=== PATIENT | female | born 1990 | race Caucasian/White ===

== ENCOUNTER 2018-03-07 14:22 | Emergency (ER) | payer OTHER ==
[2018-03-07 14:43] VITALS: BMI 34.0
[2018-03-07 15:43] LABS: HEMOGLOBIN 12.7 g/dL (12.0-16.0); MEAN CELL VOLUME 91.7 fl (81.0-99.0); MEAN CORPUSCULAR HGB CONC 32.8 g/dL (33.0-37.0); RBC 4.23 Mil/uL (3.80-5.20); RED CELL DISTRIBUTION WIDTH 13.1 % (11.5-14.5); WHITE BLOOD COUNT 11.1 K/uL (4.8-10.8)
[2018-03-07 15:47] LABS: ALB/GLOB RATIO 0.9 (1.0-2.1); ALBUMIN 3.9 g/dL (3.5-5.0); ALT/SGPT 21 U/L (9-52); AST/SGOT 27 U/L (14-36); BLOOD UREA NITROGEN 9 mg/dl (7-17); CALCIUM 9.8 mg/dL (8.4-10.2); GFR NON-AFRICAN AMERICAN > 60
[2018-03-07 16:41] LABS: SQUAMOUS EPITHIAL 6 /hpf (0-5); URINE BACTERIA RARE (<OCC); URINE BILIRUBIN NEGATIVE (NEGATIVE); URINE BLOOD SMALL (NEGATIVE); URINE CLARITY CLOUDY (Clear); URINE COLOR YELLOW (YELLOW); URINE GLUCOSE (UA) NEG (NEGATIVE); URINE LEUKOCYTE ESTERASE NEG Leu/uL (Negative); URINE PROTEIN NEGATIVE (NEGATIVE); URINE UROBILINOGEN 0.2-1.0 mg/dL (0.2-1.0)
[2018-03-07 22:20] VITALS: BP 133/88; PULSE 103; O2SAT 100
== END 2018-03-07 17:35 | disposition home or self-care (01) ==
LOC: H.EROB2 14:22
DX: O16.3 Unspecified maternal hypertension, third trimester (principal); Z3A.32 32 weeks gestation of pregnancy

== ENCOUNTER 2018-03-15 14:57 | Emergency (ER) | payer OTHER ==
[2018-03-15 15:39] VITALS: BMI 35.2
[2018-03-15 16:24] LABS: BASO # 0.1 K/uL (0.0-0.2); BASO % 0.5 % (0.0-2.0); EOS # 0.1 K/uL (0.0-0.7); EOS % 0.9 % (0.0-4.0); HEMOGLOBIN 12.3 g/dL (12.0-16.0); LYMPH # 2.5 K/uL (1.0-4.3); LYMPH % 24.4 % (20.0-40.0); MEAN CELL VOLUME 88.3 fl (81.0-99.0); MEAN CORPUSCULAR HEMOGLOBIN 30.7 pg (27.0-31.0); MEAN CORPUSCULAR HGB CONC 34.8 g/dL (33.0-37.0); MEAN PLATELET VOLUME 7.8 fl (7.2-11.7); MONO % 9.4 % (0.0-10.0); NEUT # 6.7 K/uL (1.8-7.0); NEUT % 64.8 % (50.0-75.0); NRBC % 0.1 % (0.0-0.0); RED CELL DISTRIBUTION WIDTH 13.2 % (11.5-14.5); WHITE BLOOD COUNT 10.3 K/uL (4.8-10.8)
[2018-03-15 16:33] LABS: SQUAMOUS EPITHIAL 21 /hpf (0-5); URINE BACTERIA OCC (<OCC); URINE BILIRUBIN NEGATIVE (NEGATIVE); URINE BLOOD NEGATIVE (NEGATIVE); URINE CLARITY CLOUDY (Clear); URINE COLOR YELLOW (YELLOW); URINE GLUCOSE (UA) NEG (NEGATIVE); URINE HYALINE CAST 0-2 /hpf (0-2); URINE LEUKOCYTE ESTERASE NEG Leu/uL (Negative); URINE PROTEIN 100 mg/dL (NEGATIVE)
[2018-03-15 17:44] LABS: ALBUMIN 3.6 g/dL (3.5-5.0); ALT/SGPT 23 U/L (9-52); AST/SGOT 27 U/L (14-36); BLOOD UREA NITROGEN 10 mg/dl (7-17); CALCIUM 9.2 mg/dL (8.4-10.2); GFR NON-AFRICAN AMERICAN > 60; URIC ACID 5.6 mg/Dl (2.2-7.5)
[2018-03-15 23:25] VITALS: BP 132/93; PULSE 102; TEMP 97.5; O2SAT 99
--- NOTE | 2018-03-16 08:41 | OBHP ---
Datetime: 03/15/2018 15:00 IP Adm Impression: , intrauterine IP Chief Complaint Other: elevated BP in OB office IP Admit Plan: Observation/Evaluation Admit Comment, IP Provider: 28 y/o female G1P) at 33.4 wk GA sent to [facility] by Dr. Stephens due to elevated blood pressure reading. She was here last week for same reason; work up negative, and was discharged to home w/ instructions to follow up outpatient. She denies headache, visual changes, chest pain, SO B. She denies VB, VFL. Admits to movement. OB: Dr. Stephens Pmhx: denies Famhx: both parents w/ HTN Surghx: denies HomeRx: vitamins Allergies: NKDA ROS negative except per HPI Physical Exam: Gen: no acute distress Heart: S1 S2 present, RRR Lungs: normal resp effort, clear to auscultation bilaterally Abd:Gravid, Normal BS, non-tender Extremities: no swelling/tenderness/erythema Assessment and Plan: 28 y/o female at 33.4 wk GA sent from OB w/ elevated BP Asymptomatic elevated BP BP in [facility] 161/107, 148/104, 158/97, 141/101 CBC, CMP, Uric Acid, LDH, U/A to rule out pre-eclampsia Labetalol 100mg PO x1 NPO Will monitor BP, NST 7:10PM U/A shows 100mg/dL protienurea. CBC/CMP not significant. Patient instructed to start 24 isidro r urine collection. Start Labatelol 100mg PO BID. Will follow up w/ Dr. Stephens on 03/22/2018. ER precauti ons given. Patient stable for discharge to home. Case discussed w/ Dr. Mendez Mclean, pgyi Pelvic Type - PN: Not Done Extremities - PN: Normal Abdomen - PN: Normal Back - PN: Not Done Breast - PN: Not Done Lungs - PN: Normal Heart - PN: Normal Thyroid - PN: Not Done Neurologic - PN: Normal HEENT - PN: Not Done General - PN: Normal FHR - Baseline A Provider: 150 Gestation - Est Wks by US: 33.4 IP Hx Assessment: The History has been Reviewed and is Current EGA AdmitDate IP: 33.4 Vital Signs Provider: Reviewed Vital Signs Provider Details: elevated BP IP Chief Complaint: Other NICHD Variability Prov Fetus A: Moderate 6-25bpm NICHD Accel Fetus A IP Provider: [id number] FHR Category Provider Fetus A: Category I NICHD Decel Fetus A IP Provider: None Genitourinary Exam: Not Done DTRs - PN: Not Done Datetime: 03/07/2018 16:17 IP Fetus A Comments: Reactive NST
== END 2018-03-15 19:24 | disposition home or self-care (01) ==
LOC: H.EROB2 14:57
DX: O13.3 Gestational [pregnancy-induced] hypertension without significant proteinuria, third trimester (principal); Z3A.33 33 weeks gestation of pregnancy

== ENCOUNTER 2018-03-28 15:31 | Inpatient (IN) | payer OTHER ==
[2018-03-28 16:27] LABS: BASO # 0.1 K/uL (0.0-0.2); BASO % 0.8 % (0.0-2.0); EOS # 0.2 K/uL (0.0-0.7); EOS % 1.9 % (0.0-4.0); HEMOGLOBIN 12.5 g/dL (12.0-16.0); LYMPH # 2.1 K/uL (1.0-4.3); LYMPH % 17.4 % (20.0-40.0); MEAN CELL VOLUME 90.3 fl (81.0-99.0); MEAN CORPUSCULAR HEMOGLOBIN 29.6 pg (27.0-31.0); MEAN CORPUSCULAR HGB CONC 32.7 g/dL (33.0-37.0); MEAN PLATELET VOLUME 8.1 fl (7.2-11.7); MONO # 1.3 K/uL (0.0-0.8); MONO % 10.5 % (0.0-10.0); NEUT # 8.5 K/uL (1.8-7.0); NEUT % 69.4 % (50.0-75.0); NRBC % 0.2 % (0.0-0.0); RBC 4.21 Mil/uL (3.80-5.20); WHITE BLOOD COUNT 12.2 K/uL (4.8-10.8)
[2018-03-28] MEDS ORDERED: Betamethasone Soluspan 30 mg/5mL Inj Susp IM ONE (17:00)
[2018-03-29] MEDS ORDERED: Nalbuphine HCL 10 mg/ml Ampule IVP ONE (03:15)
[2018-03-29] MEDS ORDERED: Nalbuphine 20 mg/ml Inj (10 ml) ONE (03:26)
[2018-03-29] MEDS ORDERED: Lactated Ringer's 1,000 ML IV SCH (03:30)
[2018-03-29] MEDS ORDERED: Oxycodone/Acetaminophen 5/325 mg Tab PO PRN ×3 (04:41→05:41)
[2018-03-29] MEDS ORDERED: OXYTOCIN/0.9 % NS 20 UNIT/1,000 ML BAG IV ONE ×2 (04:41)
[2018-03-29] MEDS ORDERED: Oxytocin 30 UNIT 30 UNITS/500 ML BAG IV ONE ×2 (04:41)
[2018-03-29] MEDS ORDERED: Benzocaine/Menthol SPRAY TOP PRN ×3 (04:41→05:41)
--- NOTE | 2018-03-29 04:53 | OBADHP ---
Datetime: 03/28/2018 16:33 Admit Comment, IP Provider: HPI: Oleg is a 28 year old G1 at 35.3 sent today from [facility] US due to f etal growth restriction. Fetus was noted to have gained only 1oz over the last 2 weeks, immediate lab or induction was recommended by Dr. Gomez. Denies any cramping, vaginal bleeding or LOF. Good feta l movement. has been complicated by gestational HTN, currently on labetolol 100mg BID. Last dose was this morning. Patient has not received steroids during this . PMH Denies PSH Denies Medications PNV Labetalol 100mg BID Allergies NKDA Social Denies tobacco, alcohol and drug use during Family History Noncontributory PHYSICAL EXAM Vitals reviewed, normotensive currently See exam section labs: Blood type unvailable, GC/Chlamydia neg, HIV/RPR NR, Hep B neg, GTT WNL, GBS unknow n ASSESSMENT/PLAN: 28 year old G1 with gestational hypertension at 35.3 sent for IOL secondary to fe ingrid growth restriction. - Plan for cervidil this afternoon - First dose of betamethasone 12mg - Will need GBS prophylaxis when active or ruptured due to unknown status and fetus Nina Watson MD OB Fellow The patient was seen with the resident I agree with the note Abdomen - PN: Normal Lungs - PN: Normal Heart - PN: Normal Neurologic - PN: Normal General - PN: Normal Presentation-Admit: Vertex IP Fetus A Comments: REactive NST FHR - Baseline A Provider: 150 Gestation - Est Wks by US: 35.3 Vital Signs Provider: Reviewed; Within Normal Limits NICHD Variability Prov Fetus A: Moderate 6-25bpm NICHD Accel Fetus A IP Provider: 15X15 NICHD Decel Fetus A IP Provider: None Genitourinary Exam: Normal IP Adm Impression: , intrauterine IP Admit Plan: Admit to unit; Initiate labor induction protocol Datetime: 03/15/2018 15:00 IP Chief Complaint Other: elevated BP in OB office Pelvic Type - PN: Not Done Extremities - PN: Normal Back - PN: Not Done Breast - PN: Not Done Thyroid - PN: Not Done HEENT - PN: Not Done IP Hx Assessment: The History has been Reviewed and is Current Vital Signs Provider Details: elevated BP IP Chief Complaint: Other FHR Category Provider Fetus A: Category I DTRs - PN: Not Done EGA AdmitDate IP: 33.4
--- NOTE | 2018-03-29 05:10 | OBDS ---
[facility] Delivery Doctor: Arpita Patricia MD Tonguer: Glennantolin Nikkimarybeth RN MATERNAL INFORMATION Delivery Anesthesia: None Medications in Delivery: Pitocin Estimated Blood Loss (ml): 100 Placenta Cultured: No Maternal Complications: None Provider Comments: Delivered live baby girl at 4:23 am the baby was bulb suctioned on the perineum t hen transfeed to maternal chest. The cord was clamped and cut 3 vessels noted, cord blood wa obtained and sent to the lab. The placenta was delivered at 4:46am intact. The qbl was 100cc. There were no l acerations the mother tolerated the procedure well. the baby went to the [facility] with of 9/9 weighing 1915 g. LABOR SUMMARY EDC: 04/29/2018 00:00 No. Babies in Womb: 1 Attempted: No Labor Anesthesia: None LABOR INFORMATION Reason for Induction: Intrauterine Growth Retardation Onset of Labor: 03/29/2018 03:30 Complete Dilatation: 03/29/2018 04:18 Cervical Ripening Agents: Cervidil (Annotations: Cervidil inserted by Dr. Watson ) Oxytocin: N/A Group B Beta Strep: Done, Result Unknown Steroids Given: Partial Course; < 24 Hours before Delivery Reason Steroids Not Administered: Not Applicable MEMBRANES Membranes Rupture Method: Spontaneous Rupture of Membranes: 03/29/2018 04:23 Length of Rupture (hrs): 0.00 Amniotic Fluid Color: Clear Amniotic Fluid Amount: Small Amniotic Fluid Odor: Normal STAGES OF LABOR Stage 1 hrs: 0 Stage 1 min: 48 Stage 2 hrs: 0 Stage 2 min: 5 Stage 3 hrs: 0 Stage 3 min: 23 Total Time in Labor hrs: 1 Total Time in Labor min: 16 VAGINAL DELIVERY Episiotomy: None Laceration Extension: N/A Laceration Type: None Laceration Repair: Not Applicable Initial Vag Sponge Count: 15 Final Vag Sponge Count: 15 Initial Vag Sharps Count: 0 Final Vag Sharps Count: 0 Sponge Count Correct: Yes Sharps Count Correct: N/A BABY A INFORMATION Infant Delivery Date/Time: 03/29/2018 04:23 Method of Delivery: Vaginal Born in Route : No : N/A Forceps: N/A Vacuum Extraction: N/A Shoulder Dystocia : No SHOULDER DYSTOCIA BABY A Delivery Date/Time: 03/29/2018 04:23 PRESENTATION/POSITION BABY A Presentation: Cephalic Cephalic Presentation: Vertex PLACENTA INFORMATION BABY A Placenta Delivery Time : 03/29/2018 04:46 Placenta Method of Delivery: Spontaneous Placenta Status: Delivered SCORES BABY A Heart Rate 1 min: >100 bpm Resp Effort 1 min: Good Cry Reflex Irritability 1 min: Cough or Sneeze or Pulls Away Muscle Tone 1 min: Active Motion Color 1 min: Body [place], Extremities Blue Resuscitation Effort 1 min: Tactile Stimulation SCORE 1 MIN: 9 Heart Rate 5 min: >100 bpm Resp Effort 5 min: Good Cry Reflex Irritability 5 min: Cough or Sneeze or Pulls Away Muscle Tone 5 min: Active Motion Color 5 min: Body [place], Extremities Blue Resuscitation Effort 5 min: N/A SCORE 5 MIN: 9 INFANT INFORMATION BABY A Gestational Age at Delivery: 35.4 Gestational Status: Infant Outcome : Liveborn Condition : Stable Infant Sex: Female IDENTIFICATION/MEDS BABY A ID Band Location: Left Leg; Left Arm WEIGHT/LENGTH BABY A Infant Birthweight (gms): 1915 Weight (lb): 4 Weight (oz): 4 CORD INFORMATION BABY A No. Cord Vessels: 3 Nuchal Cord : N/A Cord Blood Taken: No Infant Suction: Mouth; Nose ASSESSMENT BABY A Complications: None Physical Findings at Delivery: Within Normal Limits Infant Respirations: Appears Normal Weather Anchor/ALS Called : No Care By: AJMarcos Transferred To: Remains with Mother
[2018-03-29] MEDS: Multivitamin With Minerals Tab PO SCH (08:58)
[2018-03-29] MEDS ORDERED: Multivitamin With Minerals Tab PO SCH (09:00)
[2018-03-29 16:15] LABS: BASO # 0.1 K/uL (0.0-0.2); BASO % 0.3 % (0.0-2.0); EOS % 0.1 % (0.0-4.0); HEMOGLOBIN 11.5 g/dL (12.0-16.0); LYMPH # 2.3 K/uL (1.0-4.3); LYMPH % 11.2 % (20.0-40.0); MEAN CELL VOLUME 89.2 fl (81.0-99.0); MEAN CORPUSCULAR HEMOGLOBIN 30.1 pg (27.0-31.0); MEAN CORPUSCULAR HGB CONC 33.7 g/dL (33.0-37.0); MONO # 2.2 K/uL (0.0-0.8); MONO % 10.6 % (0.0-10.0); NEUT # 15.8 K/uL (1.8-7.0); NEUT % 77.8 % (50.0-75.0); RBC 3.82 Mil/uL (3.80-5.20); RED CELL DISTRIBUTION WIDTH 13.7 % (11.5-14.5); WHITE BLOOD COUNT 20.2 K/uL (4.8-10.8)
[2018-03-30] MEDS: Multivitamin With Minerals Tab PO SCH (08:32)
--- NOTE | 2018-03-30 11:16 | OBPPN ---
Datetime: 03/29/2018 11:13 PP Pain Prov: Within normal limits PP Nausea Prov: Denies PP Flatus Prov: Yes PP Breasts Prov: Normal PP Heart Prov: Normal PP Lungs Prov: Normal PP Abdomen/Uterus Prov: Normal PP Lochia Prov: Normal PP Vulva/Perineum Prov: Normal PP CVA Tenderness Prov: Normal PP Extremities Prov: Normal PP C/S Incision Prov: Not Applicable PP Progress Prov: Normal PP Impression Prov: Normal progression PP Plan Prov: Continue present management PP Progress Note Prov: day #1 status post , patient recovering well. Continue curren t management Anticipate discharge home tomorrow IP PP Procedures: None Vital Signs Provider PP: Reviewed; Within Normal Limits
--- NOTE | 2018-03-30 19:11 | OBPPN ---
Datetime: 03/30/2018 19:07 PP Pain Prov: Within normal limits PP Nausea Prov: Denies PP Flatus Prov: Yes PP BM Prov: Yes PP Breasts Prov: Normal PP Heart Prov: Normal PP Lungs Prov: Normal PP Abdomen/Uterus Prov: Normal PP Lochia Prov: Normal PP Vulva/Perineum Prov: Normal PP CVA Tenderness Prov: Normal PP Extremities Prov: Normal PP Progress Prov: Normal PP Impression Prov: Normal progression PP Plan Prov: Continue present management PP Progress Note Prov: She feels fine today A: S/P day 1 (34w IOL - IUGR) PLAN: cont post care Vital Signs Provider PP: Reviewed; Within Normal Limits
[2018-03-31] MEDS: Multivitamin With Minerals Tab PO SCH (08:12)
--- NOTE | 2018-03-31 08:34 | OBPPN ---
Datetime: 03/31/2018 08:17 PP Pain Prov: Within normal limits PP Nausea Prov: Denies PP Flatus Prov: Yes PP Breasts Prov: Normal PP Heart Prov: Normal PP Lungs Prov: Normal PP Abdomen/Uterus Prov: Normal PP Lochia Prov: Normal PP Vulva/Perineum Prov: Normal PP CVA Tenderness Prov: Normal PP Extremities Prov: Normal PP Comments Phys Exam Prov: Abd: Soft, NT, BS- present UT- Firm, Below umbilicus PP Impression Prov: Normal progression PP Plan Prov: Continue present management PP Progress Note Prov: S/P , PPD #2 Clinically Stable Plan: Discharge Home.
[2018-03-31 19:12] VITALS: BP 124/90; PULSE 89; RESP 20; TEMP 97.9; O2SAT 99
== END 2018-03-31 13:20 | disposition home or self-care (01) | DRG 807 ==
LOC: H.EROB2 15:31 → H.L&D 15:57 → H.OB/GYN 03-29 06:15
PROVIDERS: ADMIT Obstetrics & Gynecology Gynecology; ATTEND Obstetrics & Gynecology Gynecology
PROC: 4A1HXCZ Monitoring of Products of Conception, Cardiac Rate, External Approach (ICD-10-PCS; 2018-03-28)
PROC: 10E0XZZ Delivery of Products of Conception, External Approach (ICD-10-PCS; principal; 2018-03-29)
DX: O60.14X0 Preterm labor third trimester with preterm delivery third trimester, not applicable or unspecified (principal); Z37.0 Single live birth; O13.4 Gestational [pregnancy-induced] hypertension without significant proteinuria, complicating childbirth; O36.5930 Maternal care for other known or suspected poor fetal growth, third trimester, not applicable or unspecified; Z3A.35 35 weeks gestation of pregnancy; O62.3 Precipitate labor